=== PATIENT | male | born 1955 | race Caucasian/White ===

== ENCOUNTER 2022-03-22 11:40 | Outpatient (CLI) | payer MEDICARE | END 2022-03-22 11:41 | disposition home or self-care (01) | LOC: BICRAD 11:40 | PROVIDERS: ATTEND Podiatrist | DX: L97.529 Non-pressure chronic ulcer of other part of left foot with unspecified severity (principal) ==

== ENCOUNTER 2022-04-20 11:31 | Outpatient (CLI) | payer MEDICARE | END 2022-04-20 11:32 | disposition home or self-care (01) | LOC: RAD 11:31 | PROVIDERS: ATTEND Internal Medicine | DX: L97.529 Non-pressure chronic ulcer of other part of left foot with unspecified severity (principal) ==

== ENCOUNTER 2022-07-19 12:04 | Outpatient (CLI) | payer MEDICARE | END 2022-07-19 12:05 | disposition home or self-care (01) | LOC: BICRAD 12:04 | PROVIDERS: ATTEND Podiatrist | DX: L89.90 Pressure ulcer of unspecified site, unspecified stage (principal) ==

== ENCOUNTER 2022-10-24 12:46 | Emergency (ER) | payer MEDICARE ==
[2022-10-24 13:18] LABS: #Basophils 0.1 thou/uL (0.0-0.2); #Eosinphils 0.1 thou/uL (0.0-0.7); #Monocytes 0.7 thou/uL (0.11-0.59); #Neutrophils 5.9 thou/uL (1.40-6.50); %Eosinophils 0.8 % (0.0-10.0); %Monocytes 8.8 % (0.0-10.0); %Neutrophils 76.1 % (42.0-75.0); Hemoglobin 9.7 g/dL (14.0-18.0); Mean Corpuscular HGB CONC 37.5 g/dL (32.0-36.0); Mean Corpuscular Hemoglobin 28.5 pg (27.0-31.0); Mean Corpuscular Volume 76.2 fl (78.0-98.0); Mean Platelet Volume 9.7 fL (7.4-10.4); Platelet Count 278 10x3/uL (130-400); RBC Distribution Width 18.6 % (11.5-14.5); White Blood Cell (WBC) Count 7.7 10x3/uL (4.8-10.8)
[2022-10-24] MEDS ORDERED: Acetaminophen 325 MG TAB ONE (13:22)
[2022-10-24 13:47] LABS: Acetaminophen Less than 10 mcg/mL (10.0-30.0); Alcohol Less than 10.0 mg/dL (Less than 10); Salicylate Less than 8.0 mg/dL (15.0-30.0)
[2022-10-24 13:48] LABS: ALT (SGPT) 22 U/L (8-55); AST (SGOT) 59 U/L (5-34); Albumin 1.9 g/dL (3.4-4.8); Alkaline Phosphatase 202 U/L (40-110); Anion Gap 12 mmol/L (10-20); BUN (Urea Nitrogen) 5 mg/dL (8.4-25.7); Calc. Creatinine Clearance 0 mL/min (70-130); Calcium 7.7 mg/dL (7.8-10.44); Carbon Dioxide 22 mmol/L (23-31); Chloride 96 mmol/L (98-107); Estimated GFR 101; Globulin 3.2 g/dL (2.4-3.5); Glucose 78 mg/dL (80-115); Potassium 3.5 mmol/L (3.5-5.1); Protein, Total 5.1 g/dL (5.8-8.1); Sodium 126 mmol/L (136-145)
== END 2022-10-24 14:35 | disposition home or self-care (01) ==
LOC: ERS 12:46
DX: E87.1 Hypo-osmolality and hyponatremia (principal); R50.9 Fever, unspecified
CPT/HCPCS: 36415; 80053; 80307; 85025; 93005

== ENCOUNTER 2022-10-31 07:53 | Outpatient (CLI) | payer MEDICARE ==
[2022-10-31] MEDS ORDERED: Iopamidol 370 76% 100 ML VIAL ONE (09:22)
== END 2022-10-31 07:54 | disposition home or self-care (01) ==
LOC: CT 07:53
PROVIDERS: ATTEND Internal Medicine
DX: R63.4 Abnormal weight loss (principal); N21.0 Calculus in bladder; N13.2 Hydronephrosis with renal and ureteral calculous obstruction
CPT/HCPCS: 74177; Q9967

== ENCOUNTER 2022-11-16 09:59 | Outpatient (CLI) | payer MEDICARE | END 2022-11-16 10:00 | disposition home or self-care (01) | LOC: RAD 09:59 | PROVIDERS: ATTEND Internal Medicine | DX: R05.3 Chronic cough (principal); R63.4 Abnormal weight loss | CPT/HCPCS: 71046 ==